=== PATIENT | female | born 1975 | race Hispanic/Latino ===

== ENCOUNTER 2020-09-21 06:13 | Emergency (ER) | payer OTHER ==
[2020-09-21] MEDS ORDERED: HYDROXYZINE HCL 25 MG TABLET ONE (06:28)
== END 2020-09-21 07:02 | disposition home or self-care (01) ==
LOC: EDH 06:13
DX: F41.9 Anxiety disorder, unspecified (principal); F31.9 Bipolar disorder, unspecified; Z98.890 Other specified postprocedural states; Z90.710 Acquired absence of both cervix and uterus; Z79.899 Other long term (current) drug therapy